=== PATIENT | male | born 1940 | race African-American/Black ===

== ENCOUNTER 2019-08-05 10:01 | Emergency (ER) | payer MEDICARE, MEDICAID ==
[~2019-08-05] VITALS: Ht 165.1 cm; Wt 68.0 kg
[~2019-08-05 10:01] MED LIST: ALBU2.5V13 NEB; AMLO10TA80 PO; AMLO5TAB4 PO; AMOX500T2 PO; CLAR500T3 PO; ETOD500T2 PO; MONT10TA24 PO; OMEP20CA5 PO; P20 PO; TDUR2 PO
[2019-08-05] MEDS ORDERED: HYDROCODONE/ACETAMINOPHEN 5/325MG TABLET PO ONE (11:45)
[2019-08-05 12:05] VITALS: BP 164/94
== END 2019-08-05 12:06 | disposition home or self-care (01) ==
LOC: ER 10:27
DX: B02.9 Zoster without complications (principal); J44.9 Chronic obstructive pulmonary disease, unspecified; I10 Essential (primary) hypertension; Z79.899 Other long term (current) drug therapy
CPT/HCPCS: 99283